=== PATIENT | female | born 1995 | race African-American/Black ===

== ENCOUNTER 2022-10-15 16:25 | Inpatient (IN) | payer OTHER ==
[2022-10-15] MEDS ORDERED: DEXTROSE 5%-LACTATED RINGERS 1,000 ML IV SCH (18:00)
[2022-10-15] MEDS ORDERED: AMPICILLIN - 2 GM in SODIUM CHLORIDE 100 ML IVPB SCH (18:00)
[2022-10-15] MEDS ORDERED: AMPICILLIN SODIUM 2 GM VIAL ONE (18:15)
[2022-10-15 19:02] VITALS: BMI 34.7
[2022-10-15] MEDS ORDERED: AMPICILLIN - 1 GM in SODIUM CHLORIDE 100 ML IVPB SCH (19:15)
[2022-10-15] MEDS ORDERED: DINOPROSTONE 10 MG VAGINAL SUPPOSITORY VG ONE (20:30)
[2022-10-15 20:40] LABS: BASO % 0.5 % (0-2.0); EOS % 0.3 % (0-4.5); HEMATOCRIT 35.3 % (32.4-45.2); HEMOGLOBIN 11.6 GM/dL (10.7-15.3); LYMPH % 20.3 % (8-40); MCHC 32.9 g/dl (32.0-36.0); MEAN CELL VOLUME 88.2 fl (80-96); MEAN PLT VOLUME 8.3 fl (7.5-11.1); MONO % 5.9 % (3.8-10.2); PLATELET COUNT 310 10^3/uL (134-434); RBC 4.01 M/mm3 (3.60-5.2); RDW 13.9 % (11.6-15.6)
[2022-10-15 20:48] LABS: INR 1.05 (0.83-1.09); PROTHROMBIN TIME (PATIENT) 12.2 SEC (9.7-13.0)
[2022-10-15 20:51] LABS: ACTIVATED PTT 31.6 SECONDS (25.2-36.5)
[2022-10-15 21:00] LABS: CALCIUM 8.8 mg/dL (8.5-10.1)
[2022-10-15 21:01] LABS: BLOOD UREA NITROGEN 7.2 mg/dL (7-18)
[2022-10-15 21:04] LABS: CREATININE 0.6 mg/dL (0.55-1.3)
[2022-10-15] MEDS ORDERED: OXYTOCIN 30 UNITS in 0.9% NS 30 UNIT/500 ML INFUS.BAG IVPB SCH (21:15)
[2022-10-15] MEDS ORDERED: AMPICILLIN SODIUM 1 GM VIAL ONE (21:50)
[2022-10-15 21:57] LABS: HIV INTERPRETATION NEGATIVE (NEGATIVE)
[2022-10-15] MEDS: AMPICILLIN - 1 GM in SODIUM CHLORIDE 100 ML IVPB SCH (22:00)
[2022-10-15] MEDS ORDERED: PROMETHAZINE HCL 25 MG/1 ML VIAL ONE (22:36)
[2022-10-15] MEDS ORDERED: BUTORPHANOL TARTRATE 2 MG/ML VIAL ONE (22:36)
[2022-10-15] MEDS ORDERED: LIDOCAINE HCL 1% PRESERVATIVE FREE - 30ML VIAL ONE (22:52)
[2022-10-15] MEDS ORDERED: OXYTOCIN 20 UNITS in 0.9% NS 20 UNIT/1,000 ML INFUS.BAG IV ONE (22:52)
[2022-10-15] MEDS ORDERED: OXYTOCIN 30 UNITS in 0.9% NS 30 UNIT/500 ML INFUS.BAG IVPB ONE (23:27)
[2022-10-16] MEDS: AMPICILLIN - 1 GM in SODIUM CHLORIDE 100 ML IVPB SCH (00:45)
[2022-10-16] MEDS ORDERED: AMPICILLIN SODIUM 1 GM VIAL ONE (00:57)
[2022-10-16] MEDS ORDERED: PROMETHAZINE HCL 25 MG/1 ML VIAL IVPB ONE (01:00)
[2022-10-16] MEDS ORDERED: BUTORPHANOL TARTRATE 1 MG/ML VIAL IVPB ONE (01:00)
[2022-10-16] MEDS ORDERED: BENZOCAINE 20% 57 GM BOTTLE TP PRN (01:31)
[2022-10-16] MEDS ORDERED: BISACODYL 10 MG SUPP.RECT RC PRN (01:31)
[2022-10-16] MEDS ORDERED: oxyCODONE HCL 5 MG TABLET PO PRN (01:31)
[2022-10-16] MEDS ORDERED: BENZOCAINE 28 GM HEMORRHOIDAL OINTMENT TP PRN (01:31)
[2022-10-16] MEDS ORDERED: METHYLERGONOVINE MALEATE 0.2 MG/1 ML AMP IM PRN (01:31)
[2022-10-16] MEDS ORDERED: WITCH HAZEL 50% (TUCKS) 40 PAD/JAR PAD TP PRN (01:31)
[2022-10-16] MEDS ORDERED: ACETAMINOPHEN 325 MG TABLET (FP) PO PRN (01:31)
[2022-10-16] MEDS ORDERED: OXYTOCIN 20 UNITS in 0.9% NS 20 UNIT/1,000 ML INFUS.BAG IV SCH (01:45)
[2022-10-16] MEDS: IBUPROFEN 600 MG TABLET (FP) PO PRN ×2 (04:11→19:38)
[2022-10-16] MEDS ORDERED: FLU VACC QS2022-23(6MOS UP)/PF 60 MCG/0.5 ML SYRINGE IM ONE (10:00)
[2022-10-16] MEDS: PRENATAL VITAMINS W/ FOLIC ACID TABLET (FP) PO SCH (10:45)
[2022-10-17 03:20] VITALS: TEMP 98.2
[2022-10-17] MEDS: IBUPROFEN 600 MG TABLET (FP) PO PRN ×2 (06:12→11:12)
[2022-10-17 08:36] LABS: BASO % 0.3 % (0-2.0); EOS % 1.4 % (0-4.5); HEMOGLOBIN 10.4 GM/dL (10.7-15.3); MCH 29.4 pg (25.7-33.7); MCHC 33.5 g/dl (32.0-36.0); MEAN CELL VOLUME 87.7 fl (80-96); MEAN PLT VOLUME 8.2 fl (7.5-11.1); MONO % 7.5 % (3.8-10.2); NEUT % 61.8 % (42.8-82.8); PLATELET COUNT 296 10^3/uL (134-434); RBC 3.54 M/mm3 (3.60-5.2); RDW 13.6 % (11.6-15.6); WHITE BLOOD COUNT 10.4 K/mm3 (4.0-10.0)
[2022-10-17 09:52] VITALS: BP 104/61; PULSE 60; RESP 18
[2022-10-17] MEDS: PRENATAL VITAMINS W/ FOLIC ACID TABLET (FP) PO SCH (11:12)
[2022-10-17] MEDS ORDERED: SENNOSIDES/DOCUSATE COMBO (SENNA PLUS) TABLET (UD) PO PRN (22:00)
== END 2022-10-17 15:20 | disposition home or self-care (01) | DRG 560 ==
LOC: JLDR 16:25 → J3W 10-16 03:47
PROVIDERS: ADMIT Obstetrics & Gynecology; ATTEND Obstetrics & Gynecology
PROC: 3E0P7VZ Introduction of Hormone into Female Reproductive, Via Natural or Artificial Opening (ICD-10-PCS; 2022-10-15)
PROC: 3E033VJ Introduction of Other Hormone into Peripheral Vein, Percutaneous Approach (ICD-10-PCS; 2022-10-15)
PROC: 10E0XZZ Delivery of Products of Conception, External Approach (ICD-10-PCS; principal; 2022-10-16)
DX: O42.02 Full-term premature rupture of membranes, onset of labor within 24 hours of rupture (principal); O34.33 Maternal care for cervical incompetence, third trimester; O99.824 Streptococcus B carrier state complicating childbirth; Z3A.38 38 weeks gestation of pregnancy; Z37.0 Single live birth
CPT/HCPCS: 36415; 59409; 80048; 85025; 85610; 85730; 86780; 86850; 86900; 86901; 87389; C9803-CS; G0008; Q2036; U0003; U0005